=== PATIENT | male | born 1950 | race Two or more races ===

== ENCOUNTER 2017-09-15 00:59 | Inpatient (IN) | payer MEDICARE ==
[~2017-09-15] VITALS: Ht 162.6 cm; Wt 58.5 kg
[2017-09-15] MEDS ORDERED: MAGNESIUM HYDROXIDE 30 ML UDC PO PRN (01:30)
[2017-09-15] MEDS ORDERED: LORAZEPAM 0.5 MG TABLET PO PRN (01:30)
[2017-09-15] MEDS ORDERED: MAG HYDROX/AL HYDROX/SIMETH 30 ML UDC PO PRN (01:30)
[2017-09-15] MEDS ORDERED: ACETAMINOPHEN 325 MG TABLET PO PRN (01:30)
--- NOTE | 2017-09-15 05:50 | NUR ---
this 66 years old male got admitted from [facility] patient was put on 5150 hold due to gravely disable unable to care for him-self, no known allergy skin is intact patient refuse to sign the consent paper advisement explain and serve to the patient with hospital handbook patient is calm and cooperative at this time will continues to monitor the patient for safety and fall.
[2017-09-15] MEDS ORDERED: Z GUARD REMEDY 2 OZ OINT TP PRN (07:00)
[2017-09-15 07:56] LABS: ALBUMIN 3.2 g/dL (3.4-5.0); BILIRUBIN,TOTAL 0.4 mg/dL (0.2-1.0); CALCIUM, SERUM 8.7 mg/dL (8.5-10.1); CREATININE 0.7 mg/dL (0.6-1.3); POTASSIUM 3.5 mmol/L (3.5-5.1)
[2017-09-15 08:00] VITALS: BP 137/76
[2017-09-15 16:00] VITALS: BP 150/90
[2017-09-15 20:40] VITALS: BP 154/90
[2017-09-15 21:00] VITALS: BP 128/74
[2017-09-15] MEDS: DIVALPROEX SODIUM 250 MG TABLET.DR PO SCH (21:11)
[2017-09-16 07:20] LABS: CALCIUM, SERUM 8.9 mg/dL (8.5-10.1); CREATININE 0.8 mg/dL (0.6-1.3)
[2017-09-16 07:27] LABS: BASOPHILS # (AUTO) 0.1 /CMM (0.0-0.2); BASOPHILS % (AUTO) 0.4 % (0.0-2.0); EOSINOPHILS % (AUTO) 1.7 % (0.0-6.0); HEMATOCRIT 44 % (39-51); HEMOGLOBIN 14.9 g/dL (13.5-17.5); LYMPHOCYTES # (AUTO) 2.1 /CMM (0.8-4.8); MEAN CORPUSCULAR HGB CONC 34 g/dl (31.0-36.0); MEAN CORPUSCULAR VOLUME 90 fL (80-96); MONOCYTES # (AUTO) 0.9 /CMM (0.1-1.30); MONOCYTES % (AUTO) 6.9 % (2.0-12.0); NEUTROPHILS # (AUTO) 9.3 /CMM (1.8-8.9); PLATELET COUNT (AUTO) 373 /CMM (150-450); RDW COEFFICIENT OF VARIATION 13.1 (11.5-15.0); WHITE BLOOD COUNT (AUTO) 12.5 K/uL (4.3-11.0)
[2017-09-16 07:46] LABS: POTASSIUM 5.5 mmol/L (3.5-5.1)
[2017-09-16 08:00] VITALS: BP 121/78
[2017-09-16] MEDS: DIVALPROEX SODIUM 250 MG TABLET.DR PO SCH ×2 (09:45→21:08)
--- NOTE | 2017-09-16 15:59 | NUR ---
Initial Discharge Plan: Pt resides at [address] [place] [address]. [address] [place] [id number]; . Pt reports that upon discharge he will move in with his daughter, Sandra Manjarrez; telephone # unknown. SW will follow up and contact family for support. SW will follow up to ensure pt is safely and adequately discharged.
[2017-09-16 16:00] VITALS: BP 137/79
--- NOTE | 2017-09-16 19:30 | NUR ---
GPS RN NOTE, RECEIVED PATIENT AWAKE AND IN BED, PATIENT HAS NO COMPLAINTS OR S/S OF PAIN AT THIS TIME. PATIENT IS DISPLAYING NO S/S OF APPARENT DISTRESS AT THIS TIME. PATIENT BREATHING IS UNLABORED WITH EQUAL RISE AND FALL OF THE CHEST. PATIENT IS ALERT AND ORIENTED X 3 ON ROOM AIR WITH A SPO2 OF 95%. PATIENT IS COMPLIANT WITH MEDICATION, ANXIOUS AT TIMES, COOPERATIVE, CALM, AND NEEDS REORIENTATION. PATIENT DENIES SUICIDE IDEATIONS AND HOMICIDAL IDEATIONS AT THIS TIME. PATIENT ASSISTED WITH TURNING AND REPOSITIONING Q2HR AND PRN FOR COMFORT AND CIRCULATION. PATIENT HAS NO NEEDS AT THIS TIME. PATIENT EDUCATED ON THE USE OF THE CALL HARRIS. PATIENT SIDE RAILS ARE UP X 2, BED IS LOCKED AND LOW, AND I WILL CONTINUE TO MONITOR THIS PATIENT Q 15 MIN WITH THE HELP OF STAFF.
[2017-09-16 20:45] VITALS: BP 119/66
[2017-09-16] MEDS: CEPHALEXIN MONOHYDRATE 500 MG CAPSULE PO SCH (21:08)
[2017-09-17 07:24] LABS: BASOPHILS % (AUTO) 0.1 % (0.0-2.0); EOSINOPHILS % (AUTO) 2.3 % (0.0-6.0); HEMATOCRIT 45 % (39-51); HEMOGLOBIN 15.4 g/dL (13.5-17.5); LYMPHOCYTES # (AUTO) 2.4 /CMM (0.8-4.8); LYMPHOCYTES % (AUTO) 25.6 % (20.0-44.0); MEAN CORPUSCULAR HGB CONC 35 g/dl (31.0-36.0); MEAN CORPUSCULAR VOLUME 90 fL (80-96); MONOCYTES # (AUTO) 0.5 /CMM (0.1-1.30); MONOCYTES % (AUTO) 5.6 % (2.0-12.0); NEUTROPHILS # (AUTO) 6.5 /CMM (1.8-8.9); NEUTROPHILS % (AUTO) 66.4 % (43.0-81.0); PLATELET COUNT (AUTO) 389 /CMM (150-450); RDW COEFFICIENT OF VARIATION 12.5 (11.5-15.0); RED BLOOD CELL COUNT(AUTO) 4.96 MIL/uL (4.5-6.0); WHITE BLOOD COUNT (AUTO) 9.6 K/uL (4.3-11.0)
[2017-09-17 07:36] LABS: CALCIUM, SERUM 9.1 mg/dL (8.5-10.1); CREATININE 0.8 mg/dL (0.6-1.3)
[2017-09-17 08:49] VITALS: BP 140/79
[2017-09-17] MEDS: DIVALPROEX SODIUM 250 MG TABLET.DR PO SCH ×2 (09:43→21:06)
[2017-09-17] MEDS: CEPHALEXIN MONOHYDRATE 500 MG CAPSULE PO SCH ×2 (09:43→21:06)
[2017-09-17 16:38] VITALS: BP 130/71
[2017-09-17 20:00] VITALS: BP 125/59
[2017-09-18] MEDS: DIVALPROEX SODIUM 250 MG TABLET.DR PO SCH ×2 (08:26→21:46)
[2017-09-18] MEDS: CEPHALEXIN MONOHYDRATE 500 MG CAPSULE PO SCH ×2 (08:26→21:46)
[2017-09-18 08:42] VITALS: BP 139/83
--- NOTE | 2017-09-18 11:55 | NUR ---
SW spoke to pts daughter Cassandra Sparks for discharge planning purposes. SW gathered additional information regarding reason as to why pt was brought in to [facility] for services. Per daughter pt is not able to discharge to his other daughter's home (Sandra) as a result of a DCFS case. Per daughter when pt was living with Sandra and her children, pt began to have anger outbursts and paranoia and refused to seek treatment. According to Cassandra this is the reason why pt was asked to leave his daughter, Sandra's home. SW will follow up to ensure pt is safely and adequately placed.
[2017-09-18 16:16] VITALS: BP 147/80
[2017-09-18 20:00] VITALS: BP 117/67
[2017-09-18] MEDS: TEMAZEPAM 7.5 MG CAPSULE PO PRN (21:47)
[2017-09-19 08:00] VITALS: BP 136/80
[2017-09-19] MEDS: CEPHALEXIN MONOHYDRATE 500 MG CAPSULE PO SCH ×2 (08:52→21:23)
[2017-09-19] MEDS: DIVALPROEX SODIUM 250 MG TABLET.DR PO SCH ×2 (08:52→21:24)
[2017-09-19 16:00] VITALS: BP 130/71
[2017-09-19 20:00] VITALS: BP 140/79
[2017-09-19] MEDS: TEMAZEPAM 7.5 MG CAPSULE PO PRN (21:24)
[2017-09-20 08:00] VITALS: BP 123/78
[2017-09-20] MEDS: DIVALPROEX SODIUM 250 MG TABLET.DR PO SCH ×2 (09:13→20:57)
[2017-09-20] MEDS: CEPHALEXIN MONOHYDRATE 500 MG CAPSULE PO SCH ×2 (09:13→20:57)
[2017-09-20 15:50] VITALS: BP 112/74
[2017-09-20 20:02] VITALS: BP 99/62
[2017-09-20] MEDS: TEMAZEPAM 7.5 MG CAPSULE PO PRN (21:45)
[2017-09-21 08:00] VITALS: BP 137/81
[2017-09-21] MEDS: CEPHALEXIN MONOHYDRATE 500 MG CAPSULE PO SCH ×2 (08:31→20:43)
[2017-09-21] MEDS: DIVALPROEX SODIUM 250 MG TABLET.DR PO SCH ×2 (08:31→20:43)
--- NOTE | 2017-09-21 12:26 | NUR ---
WOUND CARE CONSULT: PT PRESENTS WITH RT GREAT TOENAIL DISCOLORATION AND IRREGULAR AREA. RECOMMEND PODIATRY. NO DRAINAGE NOTED AT THIS TIME. NO TENDERNESS NOTED. PT IS AMBULATORY AND CONTINENT. WILL SEE PRN. CURRENT JULIAN SCORE IS 22. Addendum: 09/21/17 at 1228 by HUMA BRANCH WNDNU Amended: Links added.
[2017-09-21 16:00] VITALS: BP 129/83
[2017-09-21 19:30] VITALS: BP 111/81
[2017-09-21] MEDS: TEMAZEPAM 7.5 MG CAPSULE PO PRN (21:43)
[2017-09-22 08:00] VITALS: BP 132/84
[2017-09-22] MEDS: DIVALPROEX SODIUM 250 MG TABLET.DR PO SCH ×2 (08:38→21:43)
[2017-09-22] MEDS: CEPHALEXIN MONOHYDRATE 500 MG CAPSULE PO SCH ×2 (08:38→21:43)
[2017-09-22] MEDS: CLOTRIMAZOLE 1% 15 GM TUBE TP SCH ×2 (08:57→16:22)
[2017-09-22 15:49] VITALS: BP 123/69
[2017-09-22] MEDS ORDERED: CLOTRIMAZOLE 1% 15 GM TUBE TP SCH (17:00)
--- NOTE | 2017-09-22 20:00 | NUR ---
RECIEVED PATIENT SITTING ON HIS BED IN HIS ROOM VISITING WITH HIS FAMILY. SMILING AND COVERSING WITH THEM. HE IS COOPERATIVE ANDD FREQUENTLIY IS SMILING HE AMBULATES THE CORRIDOR AND GOES IN AND OUT OF THE TV ROOM NOT SEEING HIM TALK TO THE OTHER PATIENTS
[2017-09-22 20:15] VITALS: BP 140/75
--- NOTE | 2017-09-23 04:21 | NUR ---
AFTER VISITING WITH HIS FAMILY AMBULATED THE CORRIDOR AND THEN TO HIS ROOM AND IN BED BY 10 PM. UP TO THE BATHROOM 1X TO VOID AND THEN AMB BACK TO BED SLEPT WELL COOPERATIVE AND MEDICINE COMPLIANT
[2017-09-23 07:42] LABS: BASOPHILS % (AUTO) 0.4 % (0.0-2.0); EOSINOPHILS % (AUTO) 2.6 % (0.0-6.0); HEMATOCRIT 42 % (39-51); HEMOGLOBIN 14.3 g/dL (13.5-17.5); LYMPHOCYTES # (AUTO) 1.9 /CMM (0.8-4.8); LYMPHOCYTES % (AUTO) 21.6 % (20.0-44.0); MEAN CORPUSCULAR HGB CONC 34 g/dl (31.0-36.0); MEAN CORPUSCULAR VOLUME 89 fL (80-96); MONOCYTES # (AUTO) 0.4 /CMM (0.1-1.30); MONOCYTES % (AUTO) 4.8 % (2.0-12.0); NEUTROPHILS # (AUTO) 6.2 /CMM (1.8-8.9); NEUTROPHILS % (AUTO) 70.6 % (43.0-81.0); PLATELET COUNT (AUTO) 352 /CMM (150-450); RDW COEFFICIENT OF VARIATION 13.2 (11.5-15.0); RED BLOOD CELL COUNT(AUTO) 4.73 MIL/uL (4.5-6.0); WHITE BLOOD COUNT (AUTO) 8.7 K/uL (4.3-11.0)
[2017-09-23 08:00] VITALS: BP 135/84
[2017-09-23 08:09] LABS: CALCIUM, SERUM 8.6 mg/dL (8.5-10.1); CREATININE 0.8 mg/dL (0.6-1.3); POTASSIUM 4.7 mmol/L (3.5-5.1)
[2017-09-23] MEDS: CEPHALEXIN MONOHYDRATE 500 MG CAPSULE PO SCH ×2 (09:14→21:18)
[2017-09-23] MEDS: CLOTRIMAZOLE 1% 15 GM TUBE TP SCH ×2 (09:14→16:32)
[2017-09-23] MEDS: DIVALPROEX SODIUM 250 MG TABLET.DR PO SCH ×2 (09:14→17:38)
[2017-09-23 16:00] VITALS: BP 130/73
[2017-09-23 20:00] VITALS: BP 136/70
[2017-09-23 20:08] VITALS: BP 136/70
[2017-09-24 08:13] VITALS: BP 113/83
[2017-09-24] MEDS: CLOTRIMAZOLE 1% 15 GM TUBE TP SCH ×2 (08:33→16:24)
[2017-09-24] MEDS: CEPHALEXIN MONOHYDRATE 500 MG CAPSULE PO SCH (08:33)
[2017-09-24] MEDS: DIVALPROEX SODIUM 250 MG TABLET.DR PO SCH ×3 (08:33→16:24)
--- NOTE | 2017-09-24 08:37 | NUR ---
Discharge Plan: Patient will discharge home, [address] [facility] [address]; via private transportation at 5:00pm. Pts daughter, Anai Sparks, will pick pt up. Pt and family have been notified and are in agreement. Pt stated feeling happy about being evaluated and placed on medication. Pt agreed to be med complaint. Pt was referred to the following physicians for aftercare needs: Psychiatrist, [facility]; [id number] [facility]. [address] [facility] [address]; and Asset Protection Manager, Dr. Kristen Lainez, [address] [facility] [address]; . Pt agreed to follow up with referrals upon his discharge.
[2017-09-24 15:51] VITALS: BP 143/70
--- NOTE | 2017-09-24 17:21 | NUR ---
GPS/RN PATIENT CLEARED FOR DISCHARGE HOME BY DR BRICE AND TRAY LINE WORKER URIEL. MEDS RECONCILED BY BOTH DR'S, PRESCRIPTIONS INCLUDED IN PACKET. EXIT CARE, MEDICATIONS AND AFTER CARE PLAN EXPLAINED TO PATIENT AND DAUGHTER, VERBALIZED UNDERSTANDING. D/C PICTURES TAKEN, BELONGINGS RETURNED AND FORM SIGNED BY PATIENT. PATIENT DENIES SI/HI/AH UPON DISCHARGE, PSYCHIATRIC TREATMENT PLANS MET. LEFT UNIT CALM, COOPERATIVE, NO DISTRESS WITH ARTS THERAPIST AND FAMILY AT SIDE.
== END 2017-09-24 17:00 | disposition home or self-care (01) | DRG 885 ==
LOC: GPS 00:59 → EDBD 00:59 → GPS 01:20
PROVIDERS: ADMIT Psychiatry & Neurology Psychiatry; ATTEND Internal Medicine
PROC: 0HBRXZZ Excision of Toe Nail, External Approach (ICD-10-PCS; principal; 2017-09-22)
PROC: 0HBRXZZ Excision of Toe Nail, External Approach (ICD-10-PCS; 2017-09-22)
PROC: 0HBRXZZ Excision of Toe Nail, External Approach (ICD-10-PCS; 2017-09-22)
PROC: 0HBRXZZ Excision of Toe Nail, External Approach (ICD-10-PCS; 2017-09-22)
PROC: 0HBRXZZ Excision of Toe Nail, External Approach (ICD-10-PCS; 2017-09-22)
PROC: 0HBRXZZ Excision of Toe Nail, External Approach (ICD-10-PCS; 2017-09-22)
PROC: 0HBRXZZ Excision of Toe Nail, External Approach (ICD-10-PCS; 2017-09-22)
PROC: 0HBRXZZ Excision of Toe Nail, External Approach (ICD-10-PCS; 2017-09-22)
PROC: 0HBRXZZ Excision of Toe Nail, External Approach (ICD-10-PCS; 2017-09-22)
PROC: 0HBRXZZ Excision of Toe Nail, External Approach (ICD-10-PCS; 2017-09-22)
DX: F39 Unspecified mood [affective] disorder (principal); E44.1 Mild protein-calorie malnutrition; E88.09 Other disorders of plasma-protein metabolism, not elsewhere classified; E87.5 Hyperkalemia; B35.1 Tinea unguium; N39.0 Urinary tract infection, site not specified; D72.829 Elevated white blood cell count, unspecified; B35.3 Tinea pedis; S90.221A Contusion of right lesser toe(s) with damage to nail, initial encounter; Z68.22 Body mass index [BMI] 22.0-22.9, adult
CPT/HCPCS: 36415; 80048-TC; 80053-TC; 80061-TC; 80164-TC; 85025-TC; 87081-TC